=== PATIENT | male | born 1955 ===

== ENCOUNTER 2025-01-30 11:18 | Outpatient (AMB) | payer OTHER, SELFPAY ==
--- OUTSIDE RECORDS SUMMARY | 2025-01-30 12:48 | XMS_ITS | Clinical Summary ---
Author Organization [facility] Address [address] [place] [address] Care Team Providers Care Sleeve Presser Operator Name Role Phone Rafa Kennedy Primary Care Provider [phone] Allergies Active Allergy Reactions Criticality Noted Date Comments Cat Dander 12/02/2019 Dog Dander 12/02/2019 Mold 12/02/2019 Medications aspirin 81 mg tablet Take 81 mg by mouth 1 (one) time each day. Active dilTIAZem CD (CARDIZEM CD) 360 mg 24 hr capsule Take 360 mg by mouth 1 (one) time each day. 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 Alcohol Use Standard Drinks/Week Comments Yes 0 (1 standard drink = 0.6 oz pur e alcohol) Occasionally PHQ-2 Answer Date Recorded Depression Risk (PHQ2) Score 0 02/2022 Sex and Gender Information Value Date Recorded Sex Assigned at Not on file Legal Sex Male 1:19 PM MST Gender Identity Not on file Sexual Orientation Not on file Occupation Industry Job Start Date Job End Date Not on file Not on file Not on file Not on file Last Filed Vital Signs Vital Sign Reading Time Taken Comments Blood Pressure 134/74 07/23/2021 9:23 AM EST Pulse 82 07/23/2021 9:08 AM EST Temperature 36.3 C (97.3 F) 07/23/2021 9:08 AM EST Respiratory Rate 16 12/02/2019 10:00 AM EDT Oxygen Saturation 99% 07/23/2021 9:08 AM EST Inhaled Oxygen Concentration - - Weight 91.6 kg (202 lb) 07/23/2021 9:08 AM EST Height - - Body Mass Index - - Plan of Treatment Health Maintenance Due Date Last Done Comments CT Colonography 1954 Cologuard 1954 Colonoscopy 1954 Colorectal Cancer Screening 1954 FOBT/FIT 1954 Hepatitis C Screening 1954 Sigmoidoscopy 1954 PHQ-9 Depression Screen 1966 Annual Preventive Exam 1972 Complete Annual HRA 1972 DUNIA-7 Anxiety Screen 1972 DTaP,Tdap,and Td Vaccines (1 - Tdap) 1973 Pneumococcal Vaccine: 50+ Years (1 of 1 - PCV) 005 Zoster Vaccines (1 of 2) 2004 COVID-19 Vaccine (1 - 2023- season) 2024 Influenza Vaccine (#1) 2025 RSV Vaccine (SCDM) (1 - 1-dose 75+ series) 2029 Insurance [employer] Care Teams Sleeve Presser Operator Relationship Specialty Start Date End Date Rafa Kennedy PA [address] [place] [address] PCP - General Family Medicine 07/23/21
--- OUTSIDE RECORDS SUMMARY | 2025-01-30 12:48 | XMS_ITS | Clinical Summary ---
Author Organization [address] [place] [address] Address [address] [place] [address] Phone Care Team Providers Care Family Assistant Name Role Phone Jeremy Malik DEIDRA Primary Care Provider Allergies Active Allergy Reactions Criticality Noted Date Comments Cat Dander 07/13/2024 Dog Dander Other 11/12/2014 Throat irritation Flu Virus Vaccine Tv 2014- (18 Yr And Up),Recomb Rash 05/17/2019 Mold 07/13/2024 Other 11/12/2014 Tree Pollen-Red Maple 07/13/2024 Maple leaves Medications B complex tablet Take 1 tablet by mouth 1 (one) time each day. Active UNABLE TO FIND Inhale by mouth. CPAP. [employer]- pressure 6-11 Active multivit-min/fol ic/vit K/lycop (ONE-A-DAY MEN'S MULTIVITAMIN ORAL) Take 1 capsule by mouth 1 (one) time each day. Active UNABLE TO FIND Inject as directed every 14 (fourteen) days. Allergy Injection (ALLERGY MONTHLY INJECTION, HISTORIC) Active dilTIAZem (TIAZAC) 360 mg 24 hr capsule TAKE 1 CAPSULE DAILY 90 capsule 3 5 Active omega 4-ira-qpt-fish oil (Fish OiL) 1,000 (120-180) mg capsule 1 capsule (1,000 mg total) 1 (one) time each day. 5 Active rivaroxaban (Xarelto) 20 mg tablet Take 1 tablet (20 mg total) by mouth at bedtime. 90 tablet 2 5 Active rivaroxaban (Xarelto) 20 mg tablet TAKE 1 TABLET BY MOUTH AT BEDTIME. 90 tablet 1 5 01/06/20 25 Discontin ued(Reord er) Active Problems Problem Noted Date Diagnosed Date Venous insufficiency (chronic) (peripheral) 06/16 Assessment & Plan (07/13/2024 12:56 PM EST): Edema kwxn-fzsqxavboi-wyhjbdxv wearing compression socks or stockings. 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 07/13/2024 Overview (07/13/2024): - Mild, nonobstructive, and incidentally noted on CT scans performed for assessment of aortic size Assessment & Plan (07/13/2024 12:56 PM EST): - Order blood work to update cholesterol levels - Continue focusing on a Mediterranean diet rich in fiber -No anginal symptoms Orders: Lipid panel; Future Basic metabolic panel; Future Thoracic aortic aneurysm without rupture (CMS/HC C V24) 06/04/2022 Overview (05/13/2024): - See echo under -Most recent CT of the chest at [facility] in 06/22/2023 showing mild, fusiform dilatation of the ascending aorta with max dimension of 4.1 cm at the level of the right main pulmonary artery, mildly dilated PA measuring 3.5cm, mild coronary calcifications incidentally noted Last Assessment & Plan: Has been remarkably stable. Will plan to space out surveillance to every 3 years. Assessment & Plan (07/13/2024 12:56 PM EST): Stable. Recent CT scan at [facility] in June 2023 showed stable levels. - Next survey planned for 2026 Orders: Lipid panel; Future Basic metabolic panel; Future Obstructive sleep apnea 05/27/2015 Overview (05/13/2024): ResScan 06/05/2015 to 08/03/2015. CPAP@ 6-16/Average 8.6/Max 8.8. 0% compliant with using the machine for >4 hours/day. Average use is 1.5 hours a night with AHI 4.3. FU 09/16/15 Pulmo. 08/20/2016 to . CPAP@ 11-27/Average 8.4/Max 93. 95% compliant with using the machine for >4 hours/day. Average use is 7 hours a night with AHI 3.8. Atrial fibrillation (CMS/HCC V24, CMS/HCC V28) 0 06/21/2014 Overview (07/13/2024): -Status post cardioversion attempt in July of 2016 which was unsuccessful after 3 attempts -Discussed starting an antiarrhythmic agent and attempting cardioversion however Delfino is fairly asymptomatic on rate control which he elected to continue -Most recent echocardiogram on 04/10/2022 showing normal LV cavity size, wall thickness, and systolic function, normal regional wall motion with ejection fraction of 55 to 60%, mildly dilated RV with low normal systolic function, severe left atrial and moderate right atrial enlargement, mild MR, mild TR, normal pulmonary artery systolic pressure of 27 mmHg, upper normal aortic root at 4 cm, minimally dilated ascending aorta at 4 cm-could not compare with previous echo from 2016 which was performed on a different software -Currently rate controlled on diltiazem and on Xarelto for CVA prophylaxis Assessment & Plan (07/13/2024 12:56 PM EST): - Continue diltiazem 360 mg daily - Continue Xarelto 20 mg at bedtime - No major bleeding or bruising reported Orders: ECG 12 lead Lipid panel; Future Basic metabolic panel; Future Obesity 02/08/2014 Allergic rhinitis 11/13/2013 Nuclear sclerosis 09/16/2011 Encounters Date Type Department Care Team Description 01/05/2025 Telephone [facility] [address] [place] [address] Maddie Parra MD Med Refill (Xarelto) from Last 3 Months Immunizations Name Administration Dates Next Due Moderna SARS-CoV-2 COVID-19, mRNA, LNP-S, preservative free 01/25/2021,12/28/2020 Surgical History Surgery Date Site/Laterality Comments OTHER SURGICAL HISTORY PROCEDURE: DENIES PREVIOUS SURGERY Medical History Medical History Date Comments Atrial fibrillation (CMS/HCC V24, CMS/HCC V28) DX:Atrial fibrillation (HCC) Family History Medical History Relation Name Comments Cataracts Aunt maternal Other: [place] (fatal) Father Breast cancer Mother mets to breast Other: afib Sister 1 Breast cancer Sister 2 cause of undetermined Other: aortic issue Sister 2 Relation Name Status Comments Aunt Father Mother Sister 1 Alive Sister 2 Social History Tobacco Use Types Packs/Day Years Used Date Smoking Tobacco: Never Smokeless Tobacco: Never Alcohol Use Standard Drinks/Week Comments Yes 0 (1 standard drink = 0.6 oz pur e alcohol) Sex and Gender Information Value Date Recorded Sex Assigned at Not on file Legal Sex Male 10:42 PM EST Gender Identity Not on file Sexual Orientation Not on file Obstetrics History Last Filed Vital Signs Vital Sign Reading Time Taken Comments Blood Pressure 132/84 07/13/2024 8:52 AM EST Pulse 70 07/13/2024 8:52 AM EST Temperature - - Respiratory Rate - - Oxygen Saturation 97% 07/13/2024 8:52 AM EST Inhaled Oxygen Concentration - - Weight 84.8 kg (187 lb) 07/13/2024 8:52 AM EST Height 177.8 cm (5' 10 ) 07/13/2024 8:52 AM EST Body Mass Index 26.83 07/13/2024 8:52 AM EST Plan of Treatment Health Maintenance Due Date Last Done Comments DTaP,Tdap,and Td Vaccines (1 - Tdap) 1973 Pneumococcal Vaccine: 50+ Years (1 of 1 - PCV) 2004 Zoster Vaccines (1 of 2) 2004 Colorectal Cancer Screening: Colonoscopy 05/17/2022 Falls Risk Assessment 05/17/2022 Hepatitis C Screening 05/17/2022 Social Influencers of Health Screening 05/17/2022 COVID-19 Vaccine (2023-2 5 season) 2024 07/26/2021, 01/25/2021, 12/28/2020 Depression Screening 06/14/2024 Influenza Vaccine (#1) 2025 Hypertension/CHF/CAD Annual BMP Blood Test 07/18/2025 07/18/2024, 12/19/2020 Cholesterol Screening (Lipid Panel) 07/18/2029 07/18/2024, 12/19/2020 RSV Immunization Adult Patients (1 - 1-dose 75+ series) 2029 HIB Vaccines Aged Out No longer eligi ble based on patient's age to complete this topic HPV Vaccines Aged Out No longer eligi ble based on patient's age to complete this topic Hepatitis A Vaccines Aged Out No long er eligible based on patient's age to complete this topic Hepatitis B Vaccines Aged Out No long er eligible based on patient's age to complete this topic IPV Vaccines Aged Out No longer eligi ble based on patient's age to complete this topic MMR Vaccines Aged Out No longer eligi ble based on patient's age to complete this topic Meningococcal ACWY Vaccine Aged Out N o longer eligible based on patient's age to complete this topic Meningococcal B Vaccine Aged Out No l onger eligible based on patient's age to complete this topic RSV Immunization Patients Under 20 months Aged Out No longer eligible b ased on patient's age to complete this topic Varicella Vaccines Aged Out No longer eligible based on patient's age to complete this topic Procedures Procedure Name Priority Date/Time Associated Diagnosis Comments BASIC METABOLIC PANEL Routine 07/18/2024 3:31 PM EST LIPID PANEL Routine 07/18/2024 3:31 PM EST Atrial fibrillation, unspecified type (CMS/HCC V24, CMS/HCC V28) Aneurysm of ascending aorta without rupture (CMS/HCC V24) Coronary artery disease due to calcified coronary lesion from Last 3 Months or Most Recently Relevant to Health Maintenance Results * (ABNORMAL) Lipid panel (07/18/2024 3:31 PM EST) Cholesterol Total 172 100 - 199 mg/dL [facility] Triglycerides 154(H) 0 - 149 mg/dL [facility] 1 HDL Cholesterol 50 >39 mg/dL [facility] 1 VLDL Cholesterol Calculated 27 5 - 40 mg/dL [facility] 1 LDL Chol Calc (NIH) 95 0 - 99 mg/dL [facility] 1 Blood Venous blood specimen / Unknown 07/18/2024 3:31 PM EST 07/18/2024 Narrative [facility] 1 - 07/19/2024 7:06 AM EST Performed at: 01 - [facility] [address] [place], [place] [id number] Medical Sonographer: Maritza Ruano MD, Phone: [phone] Maddie Parra MD LAB BLOOD ORDERABLES Final Resu lt [facility] * (ABNORMAL) Basic metabolic panel (07/18/2024 3:31 PM EST) Pathologist [facility] Glucose 97 70 - 99 mg/dL [facility] 1 Blood Urea Nitrogen (BUN) 15 8 - 27 mg/dL [facility] 1 Creatinine 0.69(L) 0.76 - 1.27 mg/dL [facility] 1 eGFR 100 >59 mL/min/1.7 3 [facility] 1 BUN/Creatinine Ratio 22 10 - 24 [facility] 1 Sodium 142 134 - 144 mmol/L [facility] 1 Potassium 4.4 3.5 - 5.2 mmol/L [facility] 1 Chloride 105 96 - 106 mmol/L [facility] 1 Carbon Dioxide 22 20 - 29 mmol/L [facility] 1 Calcium 9.6 8.6 - 10.2 mg/dL [facility] 1 07/18/2024 3:31 PM EST 07/18/2024 Narrative [facility] - 07/21/2024 8:08 AM EST Performed at: 01 - [facility] [address] [place], [place] [id number] Medical Sonographer: Maritza Ruano MD, Phone: [phone] Maddie Parra MD LAB BLOOD ORDERABLES Final Resu lt [facility] 1 from Last 3 Months or Most Recently Relevant to Health Maintenance Insurance MEDICARE [employer] Care Teams Family Assistant Relationship Specialty Start Date End Date Jeremy Malik FNP [address] [facility] [address] [place] [address] PCP - General Nurse Practitioner 07/13/24
== END 2025-01-30 11:20 | disposition home or self-care (01) ==
LOC: HO.HMGAL 11:18
PROVIDERS: PCP Internal Medicine; Visit Provider Registered Nurse Emergency
DX: J30.89 Other allergic rhinitis (principal)
CPT/HCPCS: 95117; 95165

== ENCOUNTER 2025-02-14 11:51 | Outpatient (AMB) | payer OTHER, SELFPAY ==
--- OUTSIDE RECORDS SUMMARY | 2025-02-14 14:23 | XMS_ITS ---
Author Name [facility] Organization Unknown Care Team Organization Name Specialty Phone Email Start Date End Da te [facility] Termed, PROVIDER Primary Care 04/21/202201/12
--- OUTSIDE RECORDS SUMMARY | 2025-02-14 14:23 | XMS_ITS | Clinical Summary ---
Author Organization [address] [place] [address] Address [address] [place] [address] Phone Care Team Providers Care Rehab Office Coordinator Name Role Phone Jeremy Malik DEIDRA Primary [...] by mouth. CPAP. [employer]- pressure 6-11 Active multivit-min/foli c/vit K/lycop (ONE-A-DAY MEN'S MULTIVITAMIN ORAL) Take 1 capsule by mouth 1 (one) time each day. Active UNABLE TO FIND Inject as directed every 14 (fourteen) days. Allergy Injection (ALLERGY MONTHLY INJECTION, HISTORIC) Active dilTIAZem (TIAZAC) 360 mg 24 hr capsule TAKE 1 CAPSULE DAILY 90 capsule 3 5 Active omega 4-bdp-yld-fish oil (Fish OiL) 1,000 (120-180) mg capsule 1 capsule (1,000 mg total) 1 (one) time each day. 5 Active rivaroxaban (Xarelto) 20 mg tablet Take 1 tablet (20 mg total) by mouth at bedtime. 90 tablet 2 Active Active Problems Problem Noted Date Diagnosed Date Venous insufficiency (chronic) (peripheral) 06/16 Assessment & Plan (07/13/2024 12:56 PM EST): Edema mozh-gkvdedhwkf-lmrprrcp wearing compression socks or stockings. Coronary artery [...] -Most recent CT of the chest at [facility] in 06/22/2023 showing mild, fusiform dilatation [...] PM EST): Stable. Recent CT scan at [facility] in June 2023 showed stable levels. - Next survey planned for 2026 Orders: Lipid panel; Future Basic metabolic panel; Future Obstructive sleep apnea 05/27/2015 Overview (05/13/2024): ResScan 06/05/2015 to 08/03/2015. CPAP@ 6-16/Average 8.6/Max 8.8. 0% compliant with using the machine for >4 hours/day. Average use is 1.5 hours a night with AHI 4.3. FU 09/16/15 Pulmo. 08/20/2016 to . CPAP@ 6-16/Average 8.4/Max 93. 95% compliant with using the [...] Type Department Care Team Description 01/05/2025 Telephone [facility] [address] [place] [address] Maddie Parra MD from Last 3 Months Immunizations Name Administration Dates Next Due Moderna SARS-CoV-2 COVID-19, mRNA, LNP-S, preservative free 01/25/2021,12/28/2020 Surgical History Surgery Date Site/Laterality Comments OTHER SURGICAL HISTORY PROCEDURE: DENIES PREVIOUS SURGERY Medical History Medical History Date Comments Atrial fibrillation (CMS/HCC V24, CMS/HCC V28) DX:Atrial fibrillation (HCC) Family History Medical History Relation Name Comments Cataracts Aunt maternal Other: [place] (fatal) Father Breast cancer Mother mets to [...] 05/17/2022 Social Influencers of Health Screening 05/17/2022 Depression Screening 06/14/2024 COVID-19 Vaccine (4 - 2024-2 6 season) 2025 07/26/2021, 01/25/2021, 12/28/2020 Influenza Vaccine (#1) 2025 Hypertension/CHF/CAD Annual BMP [...] 7:06 AM EST Performed at: 01 - [facility] [id number] Intelligence Specialist: Maritza Ruano MD, Phone: [phone] us Maddie Parra MD LAB BLOOD ORDERABLES Final Resu lt [facility] * (ABNORMAL) Basic metabolic panel (07/18/2024 3:31 PM EST) Glucose 97 70 - 99 mg/dL [facility] [...] AM EST Performed at: 01 - [facility] [address] [id number] Intelligence Specialist: Maritza Ruano MD, Phone: [phone] us Maddie Parra MD LAB BLOOD ORDERABLES Final Resu lt [facility] 1 from Last 3 Months or Most Recently Relevant to Health Maintenance Insurance MEDICARE [employer] Care Teams Rehab Office Coordinator Relationship Specialty Start Date End Date Jeremy Malik FNP [address] [facility] [address] [place] [address] PCP - General Nurse Practitioner 07/13/24
--- OUTSIDE RECORDS SUMMARY | 2025-02-14 14:23 | XMS_ITS | Clinical Summary ---
Author Organization [facility] Address [address] [place] [address] Care Team Providers Care Oysterman Name Role Phone Rafa Kennedy Primary Care Provider [phone] Allergies Active Allergy Reactions Criticality Noted Date [...] foreign body without damage to nail 02/18/2021 020 02/2022 Family History Relation Status Comments Father [...] 75+ series) 2029 Insurance [employer] Care Teams Oysterman Relationship Specialty Start Date End Date Rafa Kennedy PA [address] [place] [address] PCP - General Family Medicine 07/23/21
== END 2025-02-14 12:06 | disposition home or self-care (01) ==
LOC: HO.HMGAL 11:51
PROVIDERS: PCP Internal Medicine; Visit Provider Registered Nurse Emergency
DX: J30.89 Other allergic rhinitis (principal)
CPT/HCPCS: 95117; 95165

== ENCOUNTER 2025-02-28 11:22 | Outpatient (AMB) | payer OTHER, SELFPAY ==
--- OUTSIDE RECORDS SUMMARY | 2025-02-28 14:42 | XMS_ITS | Clinical Summary ---
Author Organization [facility] Address [address] [place] [address] Care Team Providers Care Follow Up Specialist Name Role Phone Rafa Kennedy Primary Care Provider [phone] Allergies Active Allergy Reactions Criticality Noted Date [...] of 2) 2004 COVID-19 Vaccine (1 - season) 2025 Influenza Vaccine (#1) 2025 RSV Vaccine (SCDM) (1 - 1-dose 75+ series) 2029 Insurance [employer] Care Teams Follow Up Specialist Relationship Specialty Start Date End Date Rafa Kennedy PA [address] [place] [address] PCP - General Family Medicine 07/23/21
--- OUTSIDE RECORDS SUMMARY | 2025-02-28 14:42 | XMS_ITS | Clinical Summary ---
Author Organization [address] [place] [address] Address [address] [place] [address] Phone Care Team Providers Care Tax Investigator Name Role Phone Jeremy Malik DEIDRA Primary [...] DAILY 90 capsule 3 5 Active omega 0-oje-jrh-fish oil (Fish OiL) 1,000 (120-180) mg capsule 1 capsule (1,000 mg total) 1 (one) time each day. 5 Active rivaroxaban (Xarelto) 20 mg tablet Take 1 tablet (20 mg total) by mouth at bedtime. 90 tablet 2 Active Active Problems Problem Noted Date Diagnosed Date Venous insufficiency (chronic) (peripheral) 06/16 Assessment & Plan (07/13/2024 12:56 PM EST): Edema pmdf-kbeyrgdakl-uujpcsdz wearing compression socks or stockings. Coronary artery [...] -Most recent CT of the chest at [facility] in 06/22/2023 showing mild, fusiform dilatation [...] PM EST): Stable. Recent CT scan at [facility] in June 2023 showed stable levels. [...] Type Department Care Team Description 01/05/2025 Telephone [facility] [address] [place] [address] Maddie Parra MD from Last 3 Months Immunizations Name Administration Dates Next Due Moderna SARS-CoV-2 COVID-19, mRNA, LNP-S, preservative free 01/25/2021,12/28/2020 Surgical History Surgery Date Site/Laterality Comments OTHER SURGICAL HISTORY PROCEDURE: DENIES PREVIOUS SURGERY Medical History Medical History Date Comments Atrial fibrillation (CMS/HCC V24, CMS/HCC V28) DX:Atrial fibrillation (HCC) Family History Medical History Relation Name Comments Cataracts Aunt maternal Other: [place] (fatal) Father Breast cancer Mother mets to [...] 7:06 AM EST Performed at: 01 - [facility] [id number] Clerical Transcriber: Maritza Ruano MD, Phone: [phone] us Maddie Parra MD LAB BLOOD ORDERABLES [...] AM EST Performed at: 01 - [facility] [address] [id number] Clerical Transcriber: Maritza Ruano MD, Phone: [phone] us Maddie Parra MD LAB BLOOD ORDERABLES Final Resu lt [facility] 1 from Last 3 Months or Most Recently Relevant to Health Maintenance Insurance MEDICARE [employer] Care Teams Tax Investigator Relationship Specialty Start Date End Date Jeremy Malik FNP [address] [facility] [address] [place] [address] PCP - General Nurse Practitioner 07/13/24
== END 2025-02-28 11:40 | disposition home or self-care (01) ==
LOC: HO.HMGAL 11:22
PROVIDERS: PCP Nurse Practitioner Family; Visit Provider Registered Nurse Emergency
DX: J30.89 Other allergic rhinitis (principal)
CPT/HCPCS: 95117; 95165

== ENCOUNTER 2025-03-28 12:01 | Outpatient (AMB) | payer OTHER, SELFPAY ==
--- OUTSIDE RECORDS SUMMARY | 2025-03-28 15:11 | XMS_ITS | Clinical Summary ---
Author Organization [address] [place] [address] Address [address] [place] [address] Phone Care Team Providers Care Journey Lineman Name Role Phone Jeremy Malik DEIDRA Primary [...] DAILY 90 capsule 3 5 Active omega 5-jbg-rty-fish oil (Fish OiL) 1,000 (120-180) mg capsule 1 capsule (1,000 mg total) 1 (one) time each day. 5 Active rivaroxaban (Xarelto) 20 mg tablet Take 1 tablet (20 mg total) by mouth at bedtime. 90 tablet 2 Active Active Problems Problem Noted Date Diagnosed Date Venous insufficiency (chronic) (peripheral) 06/16 Assessment & Plan (07/13/2024 12:56 PM EST): Edema gaby-fqckwrtwpf-cntqrzpc wearing compression socks or stockings. Coronary artery [...] -Most recent CT of the chest at [facility] in 06/22/2023 showing mild, fusiform dilatation [...] PM EST): Stable. Recent CT scan at [facility] in June 2023 showed stable levels. [...] Type Department Care Team Description 01/05/2025 Telephone [facility] [address] [place] [address] Maddie Parra MD from Last 3 Months Immunizations Immunization Administration Dates Next Due Moderna SARS-CoV-2 COVID-19, mRNA, LNP-S, preservative free 01/25/2021,12/28/2020 Surgical History Surgery Date Site/Laterality Comments OTHER SURGICAL HISTORY PROCEDURE: DENIES PREVIOUS SURGERY Medical History Medical History Date Comments Atrial fibrillation (CMS/HCC V24, CMS/HCC V28) DX:Atrial fibrillation (HCC) Family History Medical History Relation Name Comments Cataracts Aunt maternal Other: [place] (fatal) Father Breast cancer Mother mets to [...] 07/13/2024 8:52 AM EST Plan of Treatment Upcoming Encounters Date Type Department Care Team (Late st Contact Info) Description 08/09/2025 8:50 AM EST Office Visit [facility] [address] [facility] [address] [place] [address] Maddie Parra MD [address] [place] [address] Health Maintenance Due Date Last Done Comments Colorectal Cancer Screening: Colonoscopy 1954 DTaP,Tdap,and Td Vaccines (1 - Tdap) 1973 Pneumococcal Vaccine: 50+ Years (1 of 1 - PCV) 2004 Zoster Vaccines (1 of 2) 2004 Falls Risk Assessment 05/17/2022 Hepatitis C Screening [...] - 07/19/2024 7:06 AM EST Performed at: - [facility] [address] [id number] Stations Superintendent: Maritza Ruano MD, Phone: [phone] Maddie Parra MD LAB BLOOD ORDERABLES Final Resu lt [facility] * (ABNORMAL) Basic metabolic panel (07/18/2024 3:31 PM EST) [facility] Glucose 97 70 - 99 mg/dL [facility] [...] - 07/21/2024 8:08 AM EST Performed at: - [facility] [address] [id number] Stations Superintendent: Maritza Ruano MD, Phone: [phone] Maddie Parra MD LAB BLOOD ORDERABLES Final Resu lt [facility] 1 from Last 3 Months or Most Recently Relevant to Health Maintenance Insurance MEDICARE [facility] Care Teams Journey Lineman Relationship Specialty Start Date End Date Jeremy Malik FNP [address] [facility] [address] [place] [address] PCP - General Nurse Practitioner 07/13/24
--- OUTSIDE RECORDS SUMMARY | 2025-03-28 15:11 | XMS_ITS | Clinical Summary ---
Author Organization [facility] Address [address] [place] [address] Care Team Providers Care Sport Shoe Spike Assembler Name Role Phone Rafa Kennedy Primary Care Provider [phone] Allergies Active Allergy Reactions Criticality Noted Date [...] 75+ series) 2029 Insurance [employer] Care Teams Sport Shoe Spike Assembler Relationship Specialty Start Date End Date Rafa Kennedy PA [address] [place] [address] PCP - General Family Medicine 07/23/21
== END 2025-03-28 12:01 | disposition home or self-care (01) ==
LOC: HO.HMGAL 12:01
PROVIDERS: PCP Nurse Practitioner Family; Visit Provider Registered Nurse Emergency
DX: J30.89 Other allergic rhinitis (principal)
CPT/HCPCS: 95117; 95165

== ENCOUNTER 2025-04-16 10:27 | Outpatient (AMB) | payer OTHER, SELFPAY ==
--- OUTSIDE RECORDS SUMMARY | 2025-04-16 12:32 | XMS_ITS | Clinical Summary ---
Author Organization [facility] Address [address] [place] [address] Care Team Providers Care Hookman Name Role Phone Rafa Kennedy Primary Care Provider [phone] Allergies Active Allergy Reactions Criticality Noted Date [...] (1 - Tdap) 1973 Pneumococcal Vaccine: 50+ Ye ars (1 of 1 - PCV) 2004 Zoster Vaccines (1 of 2) 2004 COVID-19 Vaccine (1 - 2023-2 5 season) 2025 Influenza Vaccine (#1) 2025 RSV Vaccine (SCDM) (1 - 1-do se 75+ series) 2029 Hepatitis B Vaccines Aged Out No long er eligible based on patient's age to complete this topic Insurance [employer] Care Teams Hookman Relationship Specialty Start Date End Date Rafa Kennedy PA [address] [place] [address] PCP - General Family Medicine 07/23/21
--- OUTSIDE RECORDS SUMMARY | 2025-04-16 12:32 | XMS_ITS | Clinical Summary ---
Author Organization [address] [place] [address] Address [address] [place] [address] Phone Care Team Providers Care Practice Specialist Name Role Phone Jeremy Malik DEIDRA Primary [...] DAILY 90 capsule 3 5 Active omega 6-ssi-eoe-fish oil (Fish OiL) 1,000 (120-180) mg capsule 1 capsule (1,000 mg total) 1 (one) time each day. 5 Active rivaroxaban (Xarelto) 20 mg tablet Take 1 tablet (20 mg total) by mouth at bedtime. 90 tablet 2 Active Active Problems Problem Noted Date Diagnosed Date Venous insufficiency (chronic) (peripheral) 06/16 Assessment & Plan (07/13/2024 12:56 PM EST): Edema joai-zrmrdvohnd-xrmgehqw wearing compression socks or stockings. Coronary artery [...] -Most recent CT of the chest at [facility] in 06/22/2023 showing mild, fusiform dilatation [...] EST): Stable. Recent CT scan at [facility] in June 2023 showed stable levels. - [...] 02/08/2014 Allergic rhinitis 11/13/2013 Nuclear sclerosis 09/16/2011 Immunizations Immunization Administration Dates Next Due Moderna SARS-CoV-2 COVID-19, mRNA, LNP-S, preservative free 01/25/2021,12/28/2020 Surgical History Surgery Date Site/Laterality Comments OTHER SURGICAL HISTORY PROCEDURE: DENIES PREVIOUS SURGERY Medical History Medical History Date Comments Atrial fibrillation (CMS/HCC V24, CMS/HCC V28) DX:Atrial fibrillation (HCC) Family History Medical History Relation Name Comments Cataracts Aunt maternal Other: [place] (fatal) Father Breast cancer Mother mets to [...] Description 08/09/2025 8:50 AM EST Office Visit [facility] [address] [facility] [address] [place] [phone] Maddie Parra MD [address] [place] [address] [place] [phone] Health Maintenance Due Date Last Done Comments [...] AM EST Performed at: 01 - [facility] [address] [id number] Skeins Yarn Examiner: Maritza Ruano MD, Phone: [phone] Maddie Parra MD LAB BLOOD ORDERABLES Final [...] AM EST Performed at: 01 - [facility] [address] [id number] [employer] Yarn Examiner: Maritza Ruano MD, Phone: [phone] Maddie Parra MD LAB BLOOD ORDERABLES Final Resu lt [facility] 1 from Last 3 Months or Most Recently Relevant to Health Maintenance Insurance MEDICARE [employer] Care Teams Practice Specialist Relationship Specialty Start Date End Date Jeremy Malik FNP [address] [facility] [address] [place] [address] PCP - General Nurse Practitioner 07/13/24
== END 2025-04-16 10:28 | disposition home or self-care (01) ==
LOC: HO.HMGAL 10:27
PROVIDERS: PCP Nurse Practitioner Family; Visit Provider Registered Nurse Emergency
DX: J30.89 Other allergic rhinitis (principal)
CPT/HCPCS: 95117; 95165

== ENCOUNTER 2025-04-30 10:39 | Outpatient (AMB) | payer OTHER, SELFPAY | END 2025-04-30 10:39 | disposition home or self-care (01) | LOC: HO.HMGAL 10:39 | PROVIDERS: PCP Nurse Practitioner Family; Visit Provider Registered Nurse Emergency | DX: J30.89 Other allergic rhinitis (principal) | CPT/HCPCS: 95117; 95165 ==

== ENCOUNTER 2025-05-14 10:26 | Outpatient (AMB) | payer OTHER, SELFPAY ==
--- OUTSIDE RECORDS SUMMARY | 2025-05-14 13:07 | XMS_ITS | Clinical Summary ---
Author Organization [address] [place] [address] Address [address] [place] [address] Phone Care Team Providers Care Paper Wood Cutter Name Role Phone Jeremy Malik DEIDRA Primary Care Provider [phone] Allergies Active Allergy Reactions Criticality Noted Date [...] DAILY 90 capsule 3 5 Active omega 1-yvt-bvn-fish oil (Fish OiL) 1,000 (120-180) mg capsule 1 capsule (1,000 mg total) 1 (one) time each day. 5 Active rivaroxaban (Xarelto) 20 mg tablet Take 1 tablet (20 mg total) by mouth at bedtime. 90 tablet 2 Active Active Problems Problem Noted Date Diagnosed Date Venous insufficiency (chronic) (peripheral) 06/16 Assessment & Plan (07/13/2024 12:56 PM EST): Edema aaqk-avqkfmqbpd-sjdtejaa wearing compression socks or stockings. Coronary artery [...] -Most recent CT of the chest at [facility] in 06/22/2023 showing mild, fusiform dilatation [...] Relation Name Comments Cataracts Aunt maternal Other: [place] (fatal) Father Breast cancer Mother mets to [...] Description 08/09/2025 8:50 AM EST Office Visit [facility] - [facility] [address] [facility] [address] [place] [phone] Maddei Parra MD [address] [place] [address] [place] [phone] Health Maintenance Due Date Last Done Comments [...] AM EST Performed at: 01 - [facility] [address] [id number] Survey Associate: Maritza Ruano MD, Phone: [phone] Maddie Parra MD LAB BLOOD ORDERABLES Final [...] AM EST Performed at: 01 - [facility] [address] [id number] Survey Associate: Maritza Ruano MD, Phone: [phone] Maddie Parra MD LAB BLOOD ORDERABLES Final Resu lt [facility] 1 from Last 3 Months or Most Recently Relevant to Health Maintenance Insurance MEDICARE [employer] Care Teams Paper Wood Cutter Relationship Specialty Start Date End Date Jeremy Malik FNP [address] [facility] [address] [place] [address] PCP - General Nurse Practitioner 07/13/24
--- OUTSIDE RECORDS SUMMARY | 2025-05-14 13:07 | XMS_ITS | Clinical Summary ---
Author Organization [facility] Address [address] [place] [address] Care Team Providers Care Carbon Blocks Press Operator Name Role Phone Rafa Kennedy Primary Care Provider [phone] Allergies Active Allergy Reactions Criticality Noted Date [...] complete this topic Insurance [employer] Care Teams Carbon Blocks Press Operator Relationship Specialty Start Date End Date Rafa Kennedy PA [address] [place] [address] PCP - General Family Medicine 07/23/21
== END 2025-05-14 10:28 | disposition home or self-care (01) ==
LOC: HO.HMGAL 10:26
PROVIDERS: PCP Nurse Practitioner Family; Visit Provider Registered Nurse Emergency
DX: J30.89 Other allergic rhinitis (principal)
CPT/HCPCS: 95117; 95165

== ENCOUNTER 2025-05-28 13:21 | Outpatient (AMB) | payer OTHER, SELFPAY ==
--- OUTSIDE RECORDS SUMMARY | 2025-05-28 19:18 | XMS_ITS | Clinical Summary ---
Author Organization [facility] Address [address] [place] [address] Care Team Providers Care Rn Palliative Name Role Phone Rafa Kennedy Primary Care Provider [phone] Allergies Active Allergy Reactions Criticality Noted Date [...] complete this topic Insurance [employer] Care Teams Rn Palliative Relationship Specialty Start Date End Date Rafa Kennedy PA [address] [place] [address] PCP - General Family Medicine 07/23/21
--- OUTSIDE RECORDS SUMMARY | 2025-05-28 19:18 | XMS_ITS | Clinical Summary ---
Author Organization [address] [place] [address] Address [address] [place] [address] Phone Care Team Providers Care Scale Operator Name Role Phone Jeremy Malik DEIDRA Primary Care Provider [phone] Allergies Active Allergy Reactions Criticality Noted Date [...] DAILY 90 capsule 3 5 Active omega 2-hug-syn-fish oil (Fish OiL) 1,000 (120-180) mg capsule 1 capsule (1,000 mg total) 1 (one) time each day. 5 Active rivaroxaban (Xarelto) 20 mg tablet Take 1 tablet (20 mg total) by mouth at bedtime. 90 tablet 2 Active Active Problems Problem Noted Date Diagnosed Date Venous insufficiency (chronic) (peripheral) 06/16 Assessment & Plan (07/13/2024 12:56 PM EST): Edema yyna-builavyufy-sdiopysw wearing compression socks or stockings. Coronary artery [...] panel; Future Thoracic aortic aneurysm without rupture 022 Overview (05/13/2024): - See echo under -Most recent CT of the chest at [facility] in 06/22/2023 showing mild, fusiform dilatation [...] PM EST): Stable. Recent CT scan at [facility] in June 2023 showed stable levels. [...] a night with AHI 3.8. Atrial fibrillation 06/21/2014 Overview (07/13/2024): -Status post cardioversion attempt [...] on file Sexual Orientation Not on file Last Filed Vital Signs [...] Description 08/09/2025 8:50 AM EST Office Visit [facility] [address] [facility] [address] [place] [phone] Maddie Parra MD [address] [place] [address] [place] [address] Health Maintenance Due Date Last Done Comments [...] 07/19/2024 7:06 AM EST Performed at: [address] [id number] [employer] Certified Supervisor: Maritza Ruano MD, Phone: [phone] us Maddie Parra MD LAB BLOOD ORDERABLES [...] AM EST Performed at: 01 - [facility] [address] [id number] [employer] Certified Supervisor: Maritza Ruano MD, Phone: [phone] us Maddie Parra MD LAB BLOOD ORDERABLES Final Resu lt Performing Organization Address City/[facility]/ZIP Co de Phone Number [facility] 1 from Last 3 Months or Most Recently Relevant to Health Maintenance Insurance MEDICARE [employer] Care Teams Scale Operator Relationship Specialty Start Date End Date Jeremy Malik FNP [address] [place] [address] [address] [place] [address] PCP - General Nurse Practitioner 07/13/24
== END 2025-05-28 13:23 | disposition home or self-care (01) ==
LOC: HO.HMGAL 13:21
PROVIDERS: PCP Nurse Practitioner Family; Visit Provider Registered Nurse Emergency
DX: J30.89 Other allergic rhinitis (principal)
CPT/HCPCS: 95117; 95165